=== PATIENT | male | born 1960 | race Caucasian/White ===

== ENCOUNTER → 2023-12-20 | Outpatient (REF) | payer MEDICARE, OTHER, SELFPAY | LOC: DHSLP | PROVIDERS: ATTENDING PHYSICIAN Student in an Organized Health Care Education/Training Program | DX: G47.33 Obstructive sleep apnea (adult) (pediatric) (principal) | CPT/HCPCS: 95800 ==

== ENCOUNTER 2024-08-19 16:25 | Emergency (ER) | payer MEDICARE, OTHER, SELFPAY ==
[2024-08-19 16:35] VITALS: BP 163/98
[2024-08-19 16:58] LABS: % Basophils 0.4 % (0-2); % Eosinophils 2.5 % (0-6); % Immature Granulocytes 0.3 % (0-0.5); % Lymphocytes 28.2 % (20.5-51.1); % Monocytes 9.5 % (1.7-9.3); % Neutrophils 59.1 % (42.2-75.2); Absolute Eosinophils 0.3 10^3/uL (0-0.7); Absolute Lymphocytes 2.8 10^3/uL (1.2-3.4); Absolute Monocytes 0.9 10^3/uL (0.1-0.6); Absolute Neutrophils 5.8 10^3/uL (1.4-6.5); Hematocrit 43.5 % (39.0-52.0); Hemoglobin 14.8 g/dL (13.0-18.0); Mean Corpuscular Volume 85.3 fL (80.0-94.0); Mean Platelet Volume 10.1 fL (7.4-10.4); Nucleated Red Blood Cells % 0 % (-); Platelet Count 220 10^3/uL (130-400); White Blood Cell Count 9.9 10^3/uL (4.8-10.8)
[2024-08-19 17:12] LABS: ALT (SGPT) 35 U/L (0-50); AST (SGOT) 33 U/L (17-59); Albumin 4.3 g/dl (3.5-5.0); Alkaline Phosphatase 145 U/L (38-126); Blood Urea Nitrogen 28 mg/dl (9-20); Calcium 9.3 mg/dl (8.4-10.2); Carbon Dioxide 31 mmol/L (22-30); Chloride 101 mmol/L (98-107); Glucose 151 mg/dl (70-99); Potassium 3.8 mmol/L (3.5-5.1); Sodium 140 mmol/L (135-145); Total Bilirubin 0.5 mg/dl (0.2-1.3); Total Protein 7.2 g/dl (6.3-8.2); eGFR 55.78
--- NOTE | 2024-08-19 19:39 | ED.GENMED ---
History of Present Illness
General
Chief Complaint: Heart Rate Problem
Time Seen by Provider: 08/19/24 19:25
History of Present Illness
History of Present Illness:
63-year-old male with history of hypertrophic cardiomyopathy and ventricular tachycardia status post pacemaker and AICD placement presents for evaluation of heart palpitations and dyspnea on exertion for the past 4 to 5 days. Denies any chest pain.
No fevers or chills.
Past History
Past History
ED Past Medical History: None
ED Past Surgical History: Other (Umbilical hernia repair)
Social History
Tobacco: Non-smoker
Alcohol: None
Drug: Marijuana
Personal:
Living: with family
Employment: Employed
Family History
Family History: Hypertension
Review of Systems
Review of Systems
Allergies reviewed?: Yes
All Other Systems: ROS reviewed and negative except as documented in HPI and ROS
Phy Exam
Physical Exam
Physical Exam:
GEN: Well appearing, NAD, WDWN
HEENT: Oral mucosa moist, no scleral icterus
Cardiac: Irregular, controlled rate
Lung: No respiratory distress, no tachypnea, lungs clear to auscultation bilaterally
MSK: No gross deformity or injuries
Skin: Good color, no pallor or jaundice, no rashes
Neuro: AO x3, moves all extremities freely
Psych: Calm, cooperative
Course
Orders/Labs/Results
Orders:
Orders
08/19/24 16:28
EKG [Electrocardiogram (*1)] Urgent
Reason for Study: Chest Pain
EKG- Treatment ONCE
08/19/24 16:46
CMP [Comprehensive Metabolic Panel] Urgent
Complete Blood Count/With Diff Urgent
TSH Reflex To Free T4 Urgent
Comment: ADD ON
08/19/24 19:39
Add On- LAB Urgent
Tests Added?: TSH w reflex
CR Chest - 2 Views Urgent
Comment:
Reason For Exam: SOB/CULLEN
08/19/24 21:05
Apixaban [Eliquis] 5 mg PO NOW STA
Metoprolol Xl [Toprol Xl] 50 mg PO NOW STA
Abnormal Lab Results
08/19/24
16:46
Absolute Monos (auto) 0.9 H 10^3/uL
(0.1-0.6)
Monocytes % 9.5 H %
(1.7-9.3)
Carbon Dioxide 31 H mmol/L
(22-30)
BUN 28 H mg/dl
(9-20)
Creatinine 1.4 H mg/dL
(0.7-1.3)
Glucose 151 H mg/dl
(70-99)
Alkaline Phosphatase 145 H U/L
(38-126)
08/19/24 16:46
08/19/24 16:46
Vital Signs
Initial and Last Documented VS:
Initial Vital Signs
Temp Pulse Resp BP Pulse Ox
98.3 F 89 18 163/98 98
08/19/24 16:35 08/19/24 16:35 08/19/24 16:35 08/19/24 16:35 08/19/24 16:35
Last Documented Vital Signs
Temp Pulse Resp BP Pulse Ox
98.3 F 68 15 129/86 96
08/19/24 16:35 08/19/24 19:54 08/19/24 19:54 08/19/24 19:53 08/19/24 19:54
MDM/Problems Addressed
MDM/Problems Addressed:
Patient is found to be in new onset A-fib, labs unremarkable. Will increase his dose of, Toprol and start anticoagulants recommend close cardiology follow-up
*Critical Care Note
Total Time (30-74mins, 75-104mins- exclusive of procedures): Not Applicable
ED Attending Note
-
Portions of this chart may have been created with voice recognition software.� Occasional wrong word or��sound alike� substitutions may have occurred due to the inherent limitations of voice recognition software.
Discharge Plan
Departure
Patient Disposition: Home (Routine Discharge)
Date of Disposition: 08/19/24
Time of Disposition: 21:12
Patient with high blood pressure during this ER visit?: No
Discharge Problem:
Atrial fibrillation, new onset
Instructions: Atrial Fibrillation (DC), How to take anticoagulants safely
Prescriptions:
New
Eliquis 5 mg tablet
5 mg PO BID Qty: 60 0RF
metoprolol succinate 50 mg tablet extended release 24 hr
50 mg PO DAILY Qty: 30 0RF
No Action
atorvastatin [Lipitor] 40 mg Tablet
40 mg PO QPM
aspirin 81 mg Tablet
81 mg PO QPM
metoprolol succinate 25 mg Tablet Extended Release 24 Hr
25 mg PO QPM
Tremfya 100 mg/mL Auto-Injector
100 mg SC .[id number]
ondansetron 4 mg tablet,disintegrating
4 mg PO Q8H Qty: 8 0RF
Referrals:
Lola Saavedra MD [Family Provider] -
Amilcar Oconnell MD [Active] - Call in 1-3 days for appt
Interventions
Interventions:
*Risk Screen - Suicide Last Done: 08/19/24 16:35
*General Assessment Last Done: 08/19/24 16:35
*Neglect/Abuse Screening Last Done: 08/19/24 19:54
ED- Fall Risk Assessment Last Done: 08/19/24 19:54
*ED COVID-19 Vaccine History Last Done: 08/19/24 16:35
ED- Cardiac Assessment Last Done: 08/19/24 19:54
ED- Pulmonary Assessment Last Done: 08/19/24 19:54
Discharge Date and Time
Print Language: URDU
[2024-08-19 19:53] VITALS: BP 129/86
[2024-08-19 19:54] VITALS: BMI 31.5
[2024-08-19 20:00] VITALS: BP 113/83
[2024-08-19 20:46] LABS: TSH Reflex To Free T4 3.53 uIU/ml (0.47-4.68)
[2024-08-19] MEDS: TOPROL XL 50 MG PO (21:14)
[2024-08-19] MEDS: ELIQUIS 5 MG PO (21:14)
== END 2024-08-19 21:32 | disposition home or self-care (01) ==
LOC: EMR 16:25
PROVIDERS: Emergency Medicine; EMERGENCY PHYSICIAN Emergency Medicine; FAMILY PHYSICIAN Student in an Organized Health Care Education/Training Program
DX: I48.91 Unspecified atrial fibrillation (principal); Z95.810 Presence of automatic (implantable) cardiac defibrillator; I42.2 Other hypertrophic cardiomyopathy
CPT/HCPCS: 99285; 71046; 80053; 84443; 85025; 93005

== ENCOUNTER 2024-09-06 06:38 | Day surgery (SDC) | payer MEDICARE, OTHER, SELFPAY ==
[2024-09-06 07:16] VITALS: BMI 30.2
== END 2024-09-06 09:25 | disposition home or self-care (01) ==
LOC: CATH 06:38
PROVIDERS: ATTENDING PHYSICIAN Internal Medicine; FAMILY PHYSICIAN Student in an Organized Health Care Education/Training Program; OTHER PHYSICIAN Internal Medicine
DX: I42.1 Obstructive hypertrophic cardiomyopathy (principal); I48.91 Unspecified atrial fibrillation; I08.3 Combined rheumatic disorders of mitral, aortic and tricuspid valves; I08.8 Other rheumatic multiple valve diseases; Z95.810 Presence of automatic (implantable) cardiac defibrillator; Z79.01 Long term (current) use of anticoagulants; Z79.899 Other long term (current) drug therapy; Z86.0100 Personal history of colon polyps, unspecified
CPT/HCPCS: 93312; 93320; 93325; 92960; 93005

== ENCOUNTER 2025-06-28 18:09 | Emergency (ER) | payer MEDICARE, OTHER, SELFPAY ==
[2025-06-28 18:15] VITALS: BP 153/81
[2025-06-28] MEDS: TRANEXAMIC ACID 100 IV (20:56)
--- NOTE | 2025-06-28 20:57 | ED.GENMED ---
History of Present Illness
General
Chief Complaint: Post Operative Problem(s)
Source: patient
Exam Limitations: none
Time Seen by Provider: 06/28/25 20:14
History of Present Illness
History of Present Illness:
64-year-old male presents with persistent bleeding to the upper gum starting today. Is on Eliquis 5 mg twice a day. His last dose was 6 AM this morning. He had a tooth extraction around 8 AM this morning. 5 teeth removed from the maxillary area.
They fit him for an upper denture. He has been wearing a denture since then but there has been some oozing of blood around the denture. No lightheadedness or shortness of breath. No other complaints at this time.
Past History
Past History
ED Past Medical History: None
ED Past Surgical History: Other (Umbilical hernia repair)
Social History
Tobacco: Non-smoker
Alcohol: None
Drug: Marijuana
Personal:
Living: with family
Employment: Employed
Family History
Family History: Hypertension
Phy Exam
Physical Exam
Physical Exam:
General: Well-appearing male no acute respiratory distress
HEENT normal cephalic upper denture noted to be in place. There is mild oozing of blood around the denture. Posterior pharynx is patent floor the mouth is soft neck is supple
Course
Orders/Labs/Results
Orders:
Orders
06/28/25 20:36
Tranexamic Acid 1000 mg/100 ml [Tranexamic Acid] 1,000 mg in 100 ml IV ONCE
06/28/25 20:56
CMP [Comprehensive Metabolic Panel] Urgent
Complete Blood Count/With Diff Urgent
Abnormal Lab Results
06/28/25
20:56
WBC 11.0 H 10^3/uL
(4.8-10.8)
Abs Immat Gran (auto) 0.1 H 10^3/uL
(0-0.05)
Absolute Neuts (auto) 8.1 H 10^3/uL
(1.4-6.5)
Absolute Monos (auto) 1.2 H 10^3/uL
(0.1-0.6)
Lymphocytes % 13.1 L %
(20.5-51.1)
Monocytes % 10.8 H %
(1.7-9.3)
Carbon Dioxide 31 H mmol/L
(22-30)
BUN 26 H mg/dl
(9-20)
Total Bilirubin 1.4 H mg/dl
(0.2-1.3)
06/28/25 20:56
06/28/25 20:56
Vital Signs
Initial and Last Documented VS:
Initial Vital Signs
Pulse Resp BP Pulse Ox
54 16 153/81 98
06/28/25 18:15 06/28/25 18:15 06/28/25 18:15 06/28/25 18:15
Last Documented Vital Signs
Pulse Resp BP Pulse Ox
54 16 153/81 98
06/28/25 18:15 06/28/25 18:15 06/28/25 18:15 06/28/25 20:59
MDM/Problems Addressed
Differential Diagnosis Includes:
Bleeding from the gums of the upper dental area underneath the denture. Patient is under strict instructions not to remove the denture as he may not be able to get back on. Patient is on Eliquis and will advise that he hold the Eliquis tonight and
tomorrow morning but will give IV TXA and continue to apply pressure
*Pulse Oximetry
SaO2: 98
Oxygen Mode of Delivery: Room air
Patient hypoxic: no
*Critical Care Note
Total Time (30-74mins, 75-104mins- exclusive of procedures): Not Applicable
Update Note
Update Note:
Hemoglobin 14. Patient given TXA IV here. Will continue to have him bite down on gauze and follow-up with his dentist. Vital signs are stable.
ED Attending Note
-
Portions of this chart may have been created with voice recognition software.� Occasional wrong word or��sound alike� substitutions may have occurred due to the inherent limitations of voice recognition software.
Discharge Plan
Departure
Patient Disposition: Home (Routine Discharge)
Date of Disposition: 06/28/25
Time of Disposition: 22:30
Patient with high blood pressure during this ER visit?: No
Discharge Problem:
Gingiva hemorrhage
Prescriptions:
No Action
atorvastatin [Lipitor] 40 mg Tablet
40 mg PO QPM
Eliquis 5 mg tablet
5 mg PO BID Qty: 60 0RF
metoprolol succinate 50 mg tablet extended release 24 hr
50 mg PO DAILY Qty: 30 0RF
Referrals:
Lola Saavedra MD [Family Provider, Internal Medicine]
Activity Restrictions/Additional Instructions:
Please do not take your Eliquis tonight or tomorrow morning. Continue to apply pressure with gauze. Follow-up with your dentist for next available appointment
Interventions
Interventions:
*Risk Screen - Suicide Last Done: 06/28/25 18:15
*General Assessment Last Done: 06/28/25 18:15
*Neglect/Abuse Screening Last Done: 06/28/25 18:15
ED-Skin Assessment Last Done: 06/28/25 19:35
Discharge Date and Time
Print Language: WOLOF
[2025-06-28 21:06] LABS: Hematocrit 43.2 % (39.0-52.0); Hemoglobin 14.4 g/dL (13.0-18.0); Mean Corp Hgb Conc. 33.3 g/dL (33.0-37.0); Mean Corpuscular Volume 86.2 fL (80.0-94.0); Nucleated Red Blood Cells % 0 % (-); Platelet Count 209 10^3/uL (130-400); Red Cell Dist. Width 12.8 % (11.5-14.5)
[2025-06-28 21:27] LABS: ALT (SGPT) 25 U/L (0-50); AST (SGOT) 25 U/L (17-59); Albumin 4.5 g/dl (3.5-5.0); Alkaline Phosphatase 121 U/L (38-126); Blood Urea Nitrogen 26 mg/dl (9-20); Calcium 9.6 mg/dl (8.4-10.2); Carbon Dioxide 31 mmol/L (22-30); Chloride 102 mmol/L (98-107); Potassium 4.2 mmol/L (3.5-5.1); Sodium 140 mmol/L (135-145); Total Protein 7.6 g/dl (6.3-8.2); eGFR > 60.00
[2025-06-28 21:28] LABS: Glucose 87 mg/dl (70-99)
[2025-06-28 22:36] VITALS: BP 150/86
== END 2025-06-28 22:38 | disposition home or self-care (01) ==
LOC: EMR 18:09
PROVIDERS: Physician Assistant; EMERGENCY PHYSICIAN Emergency Medicine; FAMILY PHYSICIAN Student in an Organized Health Care Education/Training Program
DX: K06.8 Other specified disorders of gingiva and edentulous alveolar ridge (principal); K91.840 Postprocedural hemorrhage of a digestive system organ or structure following a digestive system procedure; Y83.8 Other surgical procedures as the cause of abnormal reaction of the patient, or of later complication, without mention of misadventure at the time of the procedure; Z79.01 Long term (current) use of anticoagulants; Z98.818 Other dental procedure status
CPT/HCPCS: 96374; 99284; 80053; 85025

== ENCOUNTER 2025-06-29 12:31 | Emergency (ER) | payer MEDICARE, OTHER, SELFPAY ==
[2025-06-29 12:37] VITALS: BP 118/79
--- NOTE | 2025-06-29 15:56 | ED.GENMED ---
History of Present Illness
<Kelly Gerard PA-C - Last Filed: 06/30/25 08:46>
General
Chief Complaint: Oral/Mouth Problem
Source: patient
Exam Limitations: none
Time Seen by Provider: 06/29/25 15:44
Nursing documentation reviewed up to this point in time: agreed with
History of Present Illness
History of Present Illness:
Patient is a 64-year-old male who presents to the emergency department for evaluation of persistent bleeding of upper gums. Patient had a tooth extraction yesterday morning and was fitted for an upper denture. He was instructed to leave denture in
until Wednesday evening to avoid increase in swelling. However, he has had persistent bleeding from under dentures since yesterday morning. He was seen in the emergency department last night and was given a dose of IV TXA without any improvement.
He states that he is not eating or drinking due to bleeding.
Patient takes Eliquis 5 mg twice a day. His last dose was yesterday morning.
He did contact his dentist this morning although never received a callback. He denies any shortness of breath, lightheadedness/dizziness. No vomiting.
Past History
<Kelly Gerard PA-C - Last Filed: 06/30/25 08:46>
Past History
ED Past Medical History: None
ED Past Surgical History: Other (Umbilical hernia repair)
Social History
Tobacco: Non-smoker
Alcohol: None
Drug: Marijuana
Personal:
Living: with family
Employment: Employed
Family History
Family History: Hypertension
Review of Systems
<Kelly Gerard PA-C - Last Filed: 06/30/25 08:46>
Review of Systems
Allergies reviewed?: Yes
All Other Systems: ROS reviewed and negative except as documented in HPI and ROS
Phy Exam
<Kelly Gerard PA-C - Last Filed: 06/30/25 08:46>
Physical Exam
Physical Exam:
Vitals: Patient's vital signs are stable. Afebrile
General: Patient is in no distress
Skin: Warm and dry, no rashes or lesions
Head: Normocephalic, atraumatic
Throat: Upper denture in place. Mild oozing of blood around the denture bilateral sides. Few small clotes noted. Posterior pharynx nonerythematous.
Neck: Normal ROM, no cervical spine tenderness
Cardiac: Regular rate
Pulm: No apparent respiratory distress
Abdomen: Nondistended
Extremities: No evidence of cyanosis or edema
Neuro: Grossly intact
Psychiatric: Normal affect.
Course
<Kelly Gerard PA-C - Last Filed: 06/30/25 08:46>
Vital Signs
Initial and Last Documented VS:
Initial Vital Signs
Pulse Resp Pulse Ox
47 18 94
06/29/25 12:36 06/29/25 12:36 06/29/25 12:36
Last Documented Vital Signs
Pulse Resp BP Pulse Ox
47 18 118/79 94
06/29/25 12:36 06/29/25 12:36 06/29/25 12:37 06/29/25 16:00
<Jesus Valenzuela DO - Last Filed: 06/29/25 16:13>
Vital Signs
Initial and Last Documented VS:
Initial Vital Signs
Pulse Resp Pulse Ox
47 18 94
06/29/25 12:36 06/29/25 12:36 06/29/25 12:36
Last Documented Vital Signs
Pulse Resp BP Pulse Ox
47 18 118/79 94
06/29/25 12:36 06/29/25 12:36 06/29/25 12:37 06/29/25 16:00
<Kelly Gerard PA-C - Last Filed: 06/30/25 08:46>
MDM/Problems Addressed
Differential Diagnosis Includes:
Not limited to:oral truma, anticoagualtion use, etc
MDM/Problems Addressed:
64 year-old male with gingival bleeding after tooth extraction/denture replacement yesterday. He is on Eliquis. He was seen in ED yesterday evening with similar complaints, given dose of IV TXA however reports persistent oozing today. No
lightheadedness, shortness of breath, vomiting.
Patient is hemodynamically stable. On exam, patient has minimal oozing from under dentures with small amount of clot. He is protecting his airway with clear speech.
Suspect, persistent bleeding likely secondary to oral procedure exaggerated by anticoagulation use. However, on exam bleeding seems somewhat minimal with visible clot. Multiple options discussed with patient, including additional dose of TXA,
removal of dentures, or close monitoring at home.
Concerned that we may cause additional trauma with removing dentures at this time as well as increase swelling.
Shared decision-making with myself, attending physician, and patient � decision was made for discharge home with close monitoring and strict return precautions.
He is scheduled to see his dentist on Wednesday and he will wait to remove dentures until that time.
Advised patient to stay well hydrated. Strict return precautions given. Patient comfortable w/ plan.
Chronic conditions affecting care:
N/A
Acute Exacerbation and/or Progression of Chronic Illness:
N/A
<Kelly Gerard PA-C - Last Filed: 06/30/25 08:46>
*Pulse Oximetry
SaO2: 94
Patient hypoxic: no
*EKG
Interpreted by ED Provider?: NA
*[employer] Interpretation
Rate: [employer]- N/A
*Critical Care Note
Total Time (30-74mins, 75-104mins- exclusive of procedures): Not Applicable
Data Reviewed
Review of Other/Old Records Reveals: Discharge Summary (ED visit from 06/28/25)
ED Attending Note
<Kelly Gerard PA-C - Last Filed: 06/30/25 08:46>
-
Portions of this chart may have been created with voice recognition software.� Occasional wrong word or��sound alike� substitutions may have occurred due to the inherent limitations of voice recognition software.
<Jesus Valenzuela DO - Last Filed: 06/29/25 16:13>
ED Attending Note
Patient seen and examined by attending physician: Yes
I performed the substantive portion of visit, reviewed & personally made and approve the management plan that is documented in note by myself or HENOK.: Yes
ED Attending Note:
I have seen and evaluated the patient with a [id number] encounter. I have spoken to the advance practicer provider and involved in the medical history, the physical exam, medical decision making.
Evaluation and management service: agree unless noted differently below.
Results interpretation: agree unless noted differently below.
Focused HPI: 64-year-old male presenting back to the emergency department with bleeding under his recently placed dentures. Patient was seen in the emergency department recently and required TXA. Patient is supposed to remove his dentures tomorrow
but was told not to remove them too early as this may decrease the chances of it being able to be placed back in due to swelling
Physical exam: Sitting bed comfortably. No active bleeding noted in the oral cavity. Small clots noted to the posterior aspect of the palate of the denture
Medical Decision Making: Had a long discussion with the patient in regards to multiple options. We discussed doing nothing since it is not actively bleeding. We discussed removing dentures and possibly cauterizing the area of bleeding. And we
also discussed possibly giving TXA again. After discussing all the options, patient feels comfortable with the watch and wait approach and will follow-up with his dentist on Wednesday. He understands strict return precaution
Discharge Plan
Departure
Patient Disposition: Home (Routine Discharge)
Date of Disposition: 06/29/25
Time of Disposition: 16:10
Patient with high blood pressure during this ER visit?: No
Condition: Good
Discharge Problem:
Gingival bleeding
Prescriptions:
No Action
atorvastatin [Lipitor] 40 mg Tablet
40 mg PO QPM
Eliquis 5 mg tablet
5 mg PO BID Qty: 60 0RF
metoprolol succinate 50 mg tablet extended release 24 hr
50 mg PO DAILY Qty: 30 0RF
Activity Restrictions/Additional Instructions:
RETURN TO THE EMERGENCY DEPARTMENT WITH ANY PERSISTENT BLEEDING THAT WILL NOT STOP AT HOME, LIGHTHEADEDNESS/DIZZINESS, SHORTNESS OF BREATH/DIFFICULTY BREATHING, WORSENING IN CURRENT SYMPTOMS, OR ANY OTHER CONCERNS
- Please follow-up with your dentist for further management. Apply gauze as needed for persistent oozing.
- Stay well-hydrated. I would recommend soft foods over the next 2 days.
Monitor your symptoms closely and return to the emergency department with any acute worsening/new symptoms or any other concerns
Interventions
Interventions:
*Risk Screen - Suicide Last Done: 06/29/25 12:38
*Nursing Disposition Last Done: 06/29/25 16:42
Discharge Date and Time
Discharge Date/Time: 06/29/25 16:42
Print Language: SAMMARINESE
== END 2025-06-29 16:42 | disposition home or self-care (01) ==
LOC: EMR 12:31
PROVIDERS: EMERGENCY PHYSICIAN Student in an Organized Health Care Education/Training Program; FAMILY PHYSICIAN Student in an Organized Health Care Education/Training Program
DX: K06.2 Gingival and edentulous alveolar ridge lesions associated with trauma (principal); Z79.01 Long term (current) use of anticoagulants
CPT/HCPCS: 99282